=== PATIENT | female | born 1985 | race Caucasian/White ===

== ENCOUNTER 2017-02-15 23:44 | Emergency (ER) | payer OTHER ==
[~2017-02-15] VITALS: Ht 162.6 cm; Wt 80.8 kg
[2017-02-16 02:07] VITALS: BP 149/99
== END 2017-02-16 02:11 | disposition home or self-care (01) ==
LOC: EXP 23:44 → EME 23:44 → EXP 02-16 02:11
DX: S16.1XXA Strain of muscle, fascia and tendon at neck level, initial encounter (principal); X50.9XXA Other and unspecified overexertion or strenuous movements or postures, initial encounter; Y93.89 Activity, other specified; F32.9 Major depressive disorder, single episode, unspecified
CPT/HCPCS: 72125; 99281; 99284